=== PATIENT | male | born 1975 | race Caucasian/White ===

== ENCOUNTER 2018-10-21 22:46 | Emergency (ER) | payer BC, OTHER ==
[~2018-10-21] VITALS: Ht 172.7 cm; Wt 115.7 kg
[2018-10-22 00:15] VITALS: BP 146/102
== END 2018-10-22 00:15 | disposition home or self-care (01) ==
LOC: ER 22:46
DX: S61.212A Laceration without foreign body of right middle finger without damage to nail, initial encounter (principal); W25.XXXA Contact with sharp glass, initial encounter; Y93.89 Activity, other specified; Y92.89 Other specified places as the place of occurrence of the external cause; Y99.8 Other external cause status

== ENCOUNTER 2018-11-10 08:02 | Emergency (ER) | payer BC, OTHER ==
[~2018-11-10] VITALS: Ht 172.7 cm; Wt 104.3 kg
[2018-11-10 08:03] VITALS: BP 168/96
== END 2018-11-10 08:13 | disposition home or self-care (01) ==
LOC: ER 08:02
DX: S61.212D Laceration without foreign body of right middle finger without damage to nail, subsequent encounter (principal); W26.9XXD Contact with unspecified sharp object(s), subsequent encounter